=== PATIENT | female | born 1985 | race Caucasian/White ===

== ENCOUNTER 2023-12-07 14:12 | Emergency (ER) | payer BC, SELFPAY ==
[2023-12-07 14:21] VITALS: BP 132/86
--- NOTE | 2023-12-07 15:58 | ED.GENMED ---
History of Present Illness
General
Chief Complaint: DVT/Possible Blood Clot
Source: patient
Time Seen by Provider: 12/07/23 15:04
Travel History
Have you had any contact with someone who has COVID-19?: No
Do you have any symptoms of coronavirus? Fever > 100 degrees, chills, cough, shortness of breath, sore throat, loss of taste or smell, muscle aches, or headache?: No
History of Present Illness
History of Present Illness:
38-year-old female presenting to the emergency department for evaluation at the request of urgent care after she went there after she noticed a small bruise on her right lower leg earlier today. Urgent care was concerned for possible DVT so patient
into the ER to be further evaluated. Patient does have risk factors including smoking and oral contraceptive use. She denies any chest pain, shortness of breath or any other concerns.
Past History
Past History
ED Past Medical History: Psychiatric
ED Past Surgical History: Other
Social History
Tobacco: Smoker
Alcohol: None
Drug: None
Living: with family
Review of Systems
Review of Systems
All Other Systems: ROS reviewed and negative except as documented in HPI and ROS
Phy Exam
Physical Exam
Physical Exam:
GENERAL: Alert , in no apparent distress
EYE: conjunctiva clear
Head: Normocephalic atraumatic
NECK: Supple,
ENT: mmm.
LUNGS: no acute respiratory distress
NEUROLOGICAL: Alert and oriented
SKIN: Warm and dry, smaller appearing area of ecchymosis to the posterior mid right gastrocnemius. There is some mild overlying tenderness but no overlying signs of erythema. Extremities otherwise warm and well-perfused
MUSCULOSKELETAL: well perfused.
PSYCH: Normal and appropriate interaction.
Scores
Heart Failure Risk
Heart Failure Risk Score: Not Applicable
Heart Score for Chest Pain Patients
STEMI patient?: Not applicable
Withdrawal Assessment of Alcohol
Withdrawal Assessment Completed?: Not applicable
Course
Orders/Labs/Results
Orders:
Orders
12/07/23 15:09
US Periph Venous LOWER Ext RT Urgent
Comment:
Reason For Exam: edema/ecchymosis
Vital Signs
Initial and Last Documented VS:
Initial Vital Signs
Temp Pulse Resp BP Pulse Ox
99.5 F 76 18 132/86 98
12/07/23 14:21 12/07/23 14:21 12/07/23 14:21 12/07/23 14:21 12/07/23 14:21
Last Documented Vital Signs
Temp Pulse Resp BP Pulse Ox
99.5 F 66 18 124/61 98
12/07/23 14:21 12/07/23 17:30 12/07/23 14:21 12/07/23 17:30 12/07/23 16:54
MDM/Problems Addressed
Differential Diagnosis Includes:
DVT, phlebitis, contusion
MDM/Problems Addressed:
38-year-old female presenting to the emergency department for evaluation at the request of urgent care with concern for possible DVT. Patient does have risk factors for DVT including smoking and OCP use. Overall there is no obvious edema compared
to the left lower extremity. Ultrasound ordered. Reassessment following
*Radiology
Radiology exam reviewed: radiology read reviewed
*Pulse Oximetry
Patient hypoxic: no
*Critical Care Note
Total Time (30-74mins, 75-104mins- exclusive of procedures): Not Applicable
Patient Management
Escalation/DeEscalation of care consider admission/obs:
Patient's ultrasound negative for DVT. Advise close follow-up with primary care provider. Aware of return precautions and follow-up recommendations.
ED Attending Note
-
Portions of this chart may have been created with voice recognition software.� Occasional wrong word or��sound alike� substitutions may have occurred due to the inherent limitations of voice recognition software.
Discharge Plan
Departure
Patient Disposition: Home (Routine Discharge)
Date of Disposition: 12/07/23
Time of Disposition: 16:59
Patient with high blood pressure during this ER visit?: No
Discharge Problem:
Pain in right lower leg
Instructions: STRAINS
Interventions
Interventions:
*Risk Screen - Suicide Last Done: 12/07/23 14:22
*General Assessment Last Done: 12/07/23 14:22
*Neglect/Abuse Screening Last Done: 12/07/23 14:22
*Nursing Disposition Last Done: 12/07/23 17:30
ED- Cardiac Assessment Last Done: 12/07/23 16:33
ED- Pulmonary Assessment Last Done: 12/07/23 16:33
ED-Skin Assessment Last Done: 12/07/23 16:33
Discharge Date and Time
Discharge Date/Time: 12/07/23 17:31
Print Language: HEBREW
[2023-12-07 16:54] VITALS: BP 124/61
[2023-12-07 17:30] VITALS: BP 124/61
== END 2023-12-07 17:31 | disposition home or self-care (01) ==
LOC: EMR 14:12
PROVIDERS: EMERGENCY PHYSICIAN Emergency Medicine; FAMILY PHYSICIAN Family Medicine
DX: M79.661 Pain in right lower leg (principal); R58 Hemorrhage, not elsewhere classified; F17.200 Nicotine dependence, unspecified, uncomplicated; Z79.3 Long term (current) use of hormonal contraceptives; Z88.1 Allergy status to other antibiotic agents; Z88.8 Allergy status to other drugs, medicaments and biological substances
CPT/HCPCS: 99284; 93971